=== PATIENT | male | born 1985 | race Caucasian/White ===

== ENCOUNTER 2019-12-08 19:44 | Emergency (ER) | payer BC, OTHER ==
[~2019-12-08] VITALS: Ht 172.7 cm; Wt 170.1 kg
[2019-12-08 19:51] VITALS: BP 138/79
[2019-12-08] MEDS: ACETAMINOPHEN EXTRA STRENGTH 500 MG TAB PO ONE (20:58)
[2019-12-08 21:00] VITALS: BP 135/78
== END 2019-12-08 21:00 | disposition home or self-care (01) ==
LOC: MED 19:44
DX: S62.664A Nondisplaced fracture of distal phalanx of right ring finger, initial encounter for closed fracture (principal); E66.9 Obesity, unspecified; Z68.43 Body mass index [BMI] 50.0-59.9, adult; X58.XXXA Exposure to other specified factors, initial encounter; Y93.89 Activity, other specified; Y92.89 Other specified places as the place of occurrence of the external cause; Y99.8 Other external cause status
CPT/HCPCS: 73140; 99283; Q0092